=== PATIENT | male | born 1965 | race African-American/Black ===

== ENCOUNTER 2018-10-05 12:45 | Observation (INO) ==
[2018-10-05] MEDS ORDERED: Ketorolac Inj 30 MG/ML (IVP) Vial IV.PUSH ONE (14:27)
[2018-10-05] MEDS ORDERED: Sod Chloride 0.9% Inj 1,000 ML IV.CONT SCH (14:30)
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
[2018-10-05 15:20] LABS: Baso % (Auto) 0.2 % (0.0-2.0); Hematocrit 46.6 % (39.0-51.0); Hemoglobin 15.9 gm/dL (13.0-17.0); Lymph # (Auto) 0.8 th/mm3 (1.0-4.8); Lymph % (Auto) 7.2 % (9.0-44.0); Mean Corpuscular HGB Conc 34.1 % (32.0-36.0); Mean Corpuscular Hemoglobin 30.9 pg (27.0-34.0); Mean Corpuscular Volume 90.6 fL (80.0-100.0); Mean Platelet Volume 8.5 fL (7.0-11.0); Mono # (Auto) 0.3 th/mm3 (0.0-0.9); Mono % (Auto) 2.8 % (0.0-8.0); Neut # (Auto) 10.1 th/mm3 (1.8-7.7); Neut % (Auto) 89.8 % (16.0-70.0); Platelet Count 244 th/mm3 (150-450); Red Blood Count 5.14 mil/mm3 (4.50-5.90); Red Cell Distribution Width 13.7 % (11.6-17.2); White Blood Count 11.3 th/mm3 (4.0-11.0)
[2018-10-05 15:48] LABS: Alanine Aminotransferase 32 U/L (12-78); Albumin 4.4 g/dL (3.4-5.0); Anion Gap 10 meq/L (5-15); Aspartate Aminotransferase 23 U/L (15-37); Blood Urea Nitrogen 8 mg/dL (7-18); Calcium 9.5 mg/dL (8.5-10.1); Carbon Dioxide 27.4 meq/L (21.0-32.0); Chloride 105 meq/L (98-107); Glucose,Random 151 mg/dL (74-106); Magnesium 2.3 mg/dL (1.5-2.5); Potassium 3.5 meq/L (3.5-5.1); Sodium 142 meq/L (136-145)
[2018-10-05 15:51] LABS: Alkaline Phosphatase 74 U/L (45-117); Lipase 2814 U/L (73-393); Total Protein 8.3 g/dL (6.4-8.2)
[2018-10-05] MEDS ORDERED: Morphine Inj 4 MG/ML Vial IV.PUSH ONE (15:56)
--- NOTE | 2018-10-05 16:19 | CT ---
EXAM DATE: 10/05/2018 4:11 PM EST AGE/SEX: 53 years / Male INDICATIONS: Left flank pain, radiates to Left lower quadrant. CLINICAL DATA: This is the patient's initial encounter. Patient reports that signs and symptoms have been present for 1 day and indicates a pain score of 9/10. MEDICAL/SURGICAL HISTORY: None. None. RADIATION DOSE: 7.43 CTDI (mGy) COMPARISON: No prior exams available for comparison. TECHNIQUE: Multiple contiguous axial images were obtained through the abdomen. Images were obtained using multiple row detector helical technique. Using automated exposure control and adjustment of the mA and/or kV according to patient size, radiation dose was kept as low as reasonably achievable to o btain optimal diagnostic quality images. DICOM format image data is available electronically for rev iew and comparison. FINDINGS: Lower Lungs: The visualized lower lungs are clear. Liver: The liver is enlarged and demonstrates diffuse decreased attenuation suggestive of fatty infil tration but no focal mass. There is no dilation of the biliary tree. Tiny calcified gallstone is note d within the gallbladder lumen Spleen: Homogeneous density without enlargement. Pancreas: Peripancreatic inflammatory changes are noted suggestive of acute pancreatitis. Correlatio n with amylase and lipase is recommended. No pseudocyst or abscess formation is noted. Kidneys: Normal in size and shape. No evidence of mass or hydronephrosis. Adrenal Glands: Unremarkable. Aorta: The aorta and proximal iliac vessels are grossly unremarkable without aneurysmal dilation. Bowel/Mesentery: Uncomplicated colonic diverticulosis is noted. No acute diverticulitis is noted. The appendix is normal. Abdominal Wall: Small ventral abdominal wall hernias are noted and containing only fat. Retroperitoneum: No evidence of adenopathy in the retrocrural, para-aortic, or deep pelvic regions. Bladder: Contours are smooth. Reproductive Organs: No abnormal masses or calcifications seen. Inguinal: The inguinal region is unremarkable without evidence of adenopathy. Bony Structures: Unremarkable. CONCLUSION: 1. Peripancreatic inflammatory changes are noted suggestive of acute pancreatitis. Correlation with amylase and lipase is recommended. No pseudocyst or abscess formation is noted. 2. Enlarged fatty liver. 3. Cholelithiasis. 4. Uncomplicated colonic diverticulosis. 5. Small ventral abdominal wall hernias containing only fat. Electronically signed by: Dean Matthew MD 10/05/2018 4:17 PM EST
[2018-10-05 17:01] LABS: Bacteria,Urine Moderate /hpf; Bilirubin,Urine Negative (Negative); Clarity,Urine Hazy (Clear); Color,Urine Amber (Yellw/Straw); Glucose,Urine (UA) Negative (Negative); Leukocyte Esterase,Urine Negative (Negative); Mucus,Urine Few /lpf (Occasional); Nitrite,Urine Negative (Negative); Specific Gravity,Urine 1.029 (1.002-1.035); Squamous Epithelial Cell,Urine 6 /hpf (0-5)
[2018-10-05] MEDS ORDERED: Ketorolac Inj 30 MG/ML (IVP) Vial IV.PUSH PRN ×2 (17:01)
[2018-10-05] MEDS ORDERED: Acetaminophen 325 MG Tablet PO PRN ×2 (17:01→17:02)
[2018-10-05] MEDS ORDERED: Naloxone Inj 0.4 MG/ML Vial IV.PUSH PRN (17:01)
[2018-10-05] MEDS ORDERED: Morphine Inj 4 MG/ML Vial IV.PUSH PRN (17:01)
[2018-10-05] MEDS ORDERED: Bisacodyl 10 MG Supp RECTAL PRN (17:02)
[2018-10-05] MEDS ORDERED: LORazepam 1 MG Tablet PO PRN (17:15)
[2018-10-05] MEDS ORDERED: Haloperidol Inj 5 MG/ML Ampul IV.PUSH PRN (17:15)
[2018-10-05] MEDS ORDERED: Sodium Chloride 0.9% 2 ML Flush PRN IV.FLUSH (17:44)
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
[2018-10-05] MEDS ORDERED: Potassium Chlor 10 mEq Premix 10 MEQ/100 ML PIGGYBACK IV.SIG ONE (19:00)
[2018-10-05] MEDS: Sodium Chloride 0.9% 2 ML Flush BID IV.FLUSH SCH (20:08)
[2018-10-05] MEDS: Senna/Docusate Sodium 8.6/50 MG Tablet PO SCH (20:08)
[2018-10-05] MEDS: Thiamine Inj 100 MG in Sodium Chlor 0.9% Inj 100 ML IV.SIG SCH (20:15)
[2018-10-06 05:14] LABS: Baso % (Auto) 0.1 % (0.0-2.0); Hematocrit 41.4 % (39.0-51.0); Hemoglobin 14.4 gm/dL (13.0-17.0); Lymph # (Auto) 0.9 th/mm3 (1.0-4.8); Lymph % (Auto) 6.7 % (9.0-44.0); Mean Corpuscular HGB Conc 34.9 % (32.0-36.0); Mean Corpuscular Hemoglobin 31.1 pg (27.0-34.0); Mean Corpuscular Volume 89.1 fL (80.0-100.0); Mean Platelet Volume 8.5 fL (7.0-11.0); Mono # (Auto) 0.8 th/mm3 (0.0-0.9); Mono % (Auto) 6.1 % (0.0-8.0); Neut # (Auto) 11.9 th/mm3 (1.8-7.7); Neut % (Auto) 87.1 % (16.0-70.0); Platelet Count 211 th/mm3 (150-450); Red Blood Count 4.64 mil/mm3 (4.50-5.90); Red Cell Distribution Width 13.3 % (11.6-17.2); White Blood Count 13.6 th/mm3 (4.0-11.0)
[2018-10-06 06:05] LABS: Alanine Aminotransferase 25 U/L (12-78); Alkaline Phosphatase 75 U/L (45-117); Anion Gap 7 meq/L (5-15); Aspartate Aminotransferase 14 U/L (15-37); Blood Urea Nitrogen 9 mg/dL (7-18); Calcium 8.4 mg/dL (8.5-10.1); Carbon Dioxide 28.7 meq/L (21.0-32.0); Chloride 108 meq/L (98-107); Glomerular Filtration Rate Greater Than 89 mL/min (>89); Glucose,Random 113 mg/dL (74-106); Lipase 2855 U/L (73-393); Potassium 3.5 meq/L (3.5-5.1); Sodium 144 meq/L (136-145); Total Protein 7.2 g/dL (6.4-8.2); Triglycerides 76 mg/dL (42-150)
--- NOTE | 2018-10-06 08:56 | P.PN ---
Subjective Interval history: Follow up for pancreatitis, alcohol use. Patient reports feeling slightly better today. He states his abdominal pain has improved, however still uncomfortable. Reports continued intermittent nausea with last episode of vomiting last night. No bowel movement yet. Denies fevers or chills. Denies any other medical complaints. Physical Exam Vital signs: Vital Signs 10/05/18 12:48 10/05/18 14:40 10/05/18 14:41 Temperature 98.3 F 98.1 F Pulse Rate 63 62 Respiratory Rate 15 18 Blood Pressure 219/101 H 210/102 H Pulse Oximetry 98 97 98 10/05/18 17:09 10/05/18 18:27 10/05/18 18:52 Temperature 98.4 F Pulse Rate 63 58 L Respiratory Rate 18 18 18 Blood Pressure 179/86 H 174/94 H Pulse Oximetry 99 10/05/18 20:00 10/05/18 20:21 10/06/18 00:00 Temperature 98.2 F 98.3 F Pulse Rate 94 H 84 Respiratory Rate 16 18 16 Blood Pressure 148/94 H 153/84 H Pulse Oximetry 95 95 10/06/18 01:52 10/06/18 03:36 10/06/18 05:47 Temperature Pulse Rate Respiratory Rate 17 18 18 Blood Pressure Pulse Oximetry 10/06/18 06:35 Temperature 98.0 F Pulse Rate 74 Respiratory Rate 17 Blood Pressure 156/89 H Pulse Oximetry 94 L Intake & Output 10/05/18 10/06/18 10/06/18 18:59 06:59 18:59 Intake Total 100 / 100 2099 / 2099 Balance 100 / 100 2099 / 2099 Weight 87.1 kg 87.1 kg Intake: IV 100 / 100 2099 / 2099 NS + KCl 20 mEq Inj 1,000 ML @ 1000 / 1000 100 mls/hr IV.CONT .Q10H DAMARIS Rx #:[id number] NS Inj 1,000 ML @ 125 mls/hr IV 1000 / 1000 .CONT .Q8H DAMARIS Rx#:[id number] KCl 10 mEq Premix Inj 10 meq In 100 / 100 100 ml @ 100 mls/hr IV.SIG ONCE ONE Rx#:[id number] Rocephin Inj 1,000 MG In NS Inj 100 / 100 100 ML @ 200 mls/hr IV.SIG ONCE ONE Rx#:[id number] Other: Date of Last Bowel Movement 10/04/18 10/04/18 Weight On Admission 87.1 kg Narrative: GENERAL: Well-nourished, well-developed pleasant middle-aged male patient in [facility]. SKIN: Warm and dry. No rash. HEENT: Normocephalic. Atraumatic. Pupils equal and round. Mucous membranes pink and moist. CARDIOVASCULAR: Regular rate and rhythm. No murmur appreciated. RESPIRATORY: No accessory muscle use. Clear to auscultation. Breath sounds equal bilaterally. GASTROINTESTINAL: Abdomen soft, nondistended, mild tenderness to deep palpation at epigastric region. Normoactive bowel sounds x4. MUSCULOSKELETAL: No obvious deformities. Extremities without clubbing, cyanosis , or edema. NEUROLOGICAL: Awake and alert. No obvious cranial nerve deficits. Motor grossly within normal limits. Moving all extremities spontaneously. Normal speech. PSYCHIATRIC: Appropriate mood and affect; insight and judgment normal. Results - Labs CBC & Chem 7: 10/06/18 04:18 10/06/18 04:18 Laboratory Results - last 24 hr 10/05/18 10/05/18 10/05/18 15:00 15:00 16:40 WBC 11.3 H RBC 5.14 Hgb 15.9 Hct 46.6 MCV 90.6 MCH 30.9 MCHC 34.1 RDW 13.7 Plt Count 244 MPV 8.5 Neut % (Auto) 89.8 H Lymph % (Auto) 7.2 L [place] % (Auto) 2.8 Eos % (Auto) 0.0 Baso % (Auto) 0.2 Neut # (Auto) 10.1 H Lymph # (Auto) 0.8 L [place] # (Auto) 0.3 Eos # (Auto) 0.0 Baso # (Auto) 0.0 WBC Differential . Differential Comment Auto diff final Sodium 142 Potassium 3.5 Chloride 105 Carbon Dioxide 27.4 Anion Gap 10 BUN 8 Creatinine 0.91 Estimated GFR Random Glucose 151 H Calcium 9.5 Magnesium 2.3 Total Bilirubin 0.6 AST 23 ALT 32 Alkaline Phosphatase 74 Total Protein 8.3 H Albumin 4.4 Triglycerides Lipase 2814 H Urine Color Mayra Urine Clarity Hazy H Urine pH 5.0 Ur Specific [place] 1.029 Urine Protein 100 H Urine Glucose (UA) Negative Urine Ketones 20 Urine Occult Blood Negative Urine Nitrate Negative Urine Bilirubin Negative Urine Urobilinogen 2.0 H Ur Leukocyte Esterase Negative Urine RBC 3 Urine WBC 4 Ur Squamous Epith Cells 6 Urine Bacteria Moderate H Urine Mucus Few H Micro UA Comment Culture indicated Ur Microscopic Review Not Reportable Urine Culture Comments Culture indicated 10/06/18 10/06/18 04:18 04:18 WBC 13.6 H RBC 4.64 Hgb 14.4 Hct 41.4 MCV 89.1 MCH 31.1 MCHC 34.9 RDW 13.3 Plt Count 211 MPV 8.5 Neut % (Auto) 87.1 H Lymph % (Auto) 6.7 L [place] % (Auto) 6.1 Eos % (Auto) 0.0 Baso % (Auto) 0.1 Neut # (Auto) 11.9 H Lymph # (Auto) 0.9 L [place] # (Auto) 0.8 Eos # (Auto) 0.0 Baso # (Auto) 0.0 WBC Differential . Differential Comment Auto diff final Sodium 144 Potassium 3.5 Chloride 108 H Carbon Dioxide 28.7 Anion Gap 7 BUN 9 Creatinine 0.87 Estimated GFR Greater than 89 Random Glucose 113 H Calcium 8.4 L D Magnesium Total Bilirubin 0.5 AST 14 L ALT 25 Alkaline Phosphatase 75 Total Protein 7.2 D Albumin 4.0 Triglycerides 76 Lipase 2855 H Urine Color Urine Clarity Urine pH Ur Specific [place] Urine Protein Urine Glucose (UA) Urine Ketones Urine Occult Blood Urine Nitrate Urine Bilirubin Urine Urobilinogen Ur Leukocyte Esterase Urine RBC Urine WBC Ur Squamous Epith Cells Urine Bacteria Urine Mucus Micro UA Comment Ur Microscopic Review Urine Culture Comments - Imaging Impressions Abdomen/Pelvis CT 10/05/18 15:55 CONCLUSION: 1. Peripancreatic inflammatory changes are noted suggestive of acute pancreatitis. Correlation with amylase and lipase is recommended. No pseudocyst or abscess formation is noted. 2. Enlarged fatty liver. 3. Cholelithiasis. 4. Uncomplicated colonic diverticulosis. 5. Small ventral abdominal wall hernias containing only fat. Assessment and Plan - Plan 53-year-old male with history of marijuana use and alcohol abuse, presents with abdominal pain, nausea, vomiting, and anorexia. Acute pancreatitis: Suspect secondary to alcohol use, however there is presence of gallstones. -CT abdomen/pelvis 10/05 reviewed, shows Peripancreatic inflammatory changes are noted suggestive of acute pancreatitis. Correlation with amylase and lipase is recommended. No pseudocyst or abscess formation is noted. Enlarged fatty liver. Cholelithiasis. Uncomplicated colonic diverticulosis. Small ventral abdominal wall hernias containing only fat. -Lipase trended, 2814 --> 2855 today, LFTs wnl -Keep n.p.o. except ice chips -Continue supportive treatment with IV fluid hydration, pain control with Lortab prn, IV morphine prn, and antiemetics as needed -Consult gastroenterology Accelerated HTN: no hx of HTN, although the patient does not see PCP. BP 219/ 101 upon arrival. -BP has improved to 149/83 with better pain control -Likely has underlying hypertension, will continue to monitor, consider adding norvasc (avoid VONNIE/diuretic with pancreatitis) -clonidine prn for now Marijuana Use: chronic -school guidance counselor on cessation Alcohol Abuse: chronic -school guidance counselor on cessation -thiamine/folate/MV -CIWA protocol DVT Prophylaxis: teds/SCDs; patient is ambulatory
[2018-10-06] MEDS: Senna/Docusate Sodium 8.6/50 MG Tablet PO SCH ×2 (09:57→20:48)
[2018-10-06] MEDS: Sodium Chloride 0.9% 2 ML Flush BID IV.FLUSH SCH ×2 (09:57→20:43)
[2018-10-06] MEDS: Thiamine Inj 100 MG in Sodium Chlor 0.9% Inj 100 ML IV.SIG SCH (10:05)
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
[2018-10-06] MEDS: Multivitamin Inj 10 ML, Folic Acid Inj 1 MG in Sodium Chlor 0.9% Inj 500 ML IV.SIG SCH (13:33)
[2018-10-06] MEDS: Pantoprazole Sodium 20 MG DR Tablet PO SCH (18:35)
[2018-10-07 05:53] LABS: Baso % (Auto) 0.1 % (0.0-2.0); Eos % (Auto) 0.1 % (0.0-4.0); Hematocrit 39.5 % (39.0-51.0); Hemoglobin 13.4 gm/dL (13.0-17.0); Lymph # (Auto) 1.1 th/mm3 (1.0-4.8); Lymph % (Auto) 7.1 % (9.0-44.0); Mean Corpuscular HGB Conc 33.8 % (32.0-36.0); Mean Corpuscular Hemoglobin 30.8 pg (27.0-34.0); Mean Corpuscular Volume 91.1 fL (80.0-100.0); Mean Platelet Volume 8.6 fL (7.0-11.0); Mono % (Auto) 6.3 % (0.0-8.0); Neut # (Auto) 13.5 th/mm3 (1.8-7.7); Neut % (Auto) 86.4 % (16.0-70.0); Platelet Count 196 th/mm3 (150-450); Red Blood Count 4.34 mil/mm3 (4.50-5.90); Red Cell Distribution Width 13.5 % (11.6-17.2); White Blood Count 15.6 th/mm3 (4.0-11.0)
[2018-10-07 06:32] LABS: Alanine Aminotransferase 20 U/L (12-78); Albumin 3.3 g/dL (3.4-5.0); Alkaline Phosphatase 55 U/L (45-117); Anion Gap 9 meq/L (5-15); Aspartate Aminotransferase 13 U/L (15-37); Blood Urea Nitrogen 8 mg/dL (7-18); Calcium 8.4 mg/dL (8.5-10.1); Carbon Dioxide 26.3 meq/L (21.0-32.0); Chloride 108 meq/L (98-107); Glomerular Filtration Rate Greater Than 89 mL/min (>89); Glucose,Random 90 mg/dL (74-106); Lipase 964 U/L (73-393); Potassium 3.5 meq/L (3.5-5.1); Sodium 143 meq/L (136-145); Total Protein 6.6 g/dL (6.4-8.2)
[2018-10-07] MEDS: Senna/Docusate Sodium 8.6/50 MG Tablet PO SCH ×2 (09:21→22:48)
[2018-10-07] MEDS: Pantoprazole Sodium 20 MG DR Tablet PO SCH (09:21)
[2018-10-07] MEDS: Sodium Chloride 0.9% 2 ML Flush BID IV.FLUSH SCH ×2 (09:22→22:48)
--- NOTE | 2018-10-07 09:24 | P.PN ---
Subjective Interval history: Follow-up for pancreatitis, alcohol abuse. Patient seen with family at bedside. The patient reports overall improvement. He denies any further nausea or vomiting since early yesterday morning. He reports some occasional epigastric discomfort, however much improved. He is tolerating water, advance diet to clear liquids. Denies fevers or chills. Denies any other medical complaints at this time. Physical Exam Vital signs: Vital Signs 10/06/18 12:00 10/06/18 16:00 10/06/18 18:04 Temperature 97.5 F L 98.7 F Pulse Rate 71 63 Respiratory Rate 18 18 Blood Pressure 149/82 H 153/76 H Pulse Oximetry 96 96 96 10/06/18 20:00 10/07/18 00:00 10/07/18 04:00 Temperature 98.3 F 99.3 F 98.5 F Pulse Rate 73 71 73 Respiratory Rate 16 16 16 Blood Pressure 138/79 140/76 137/79 Pulse Oximetry 93 L 94 L 93 L Intake & Output 10/06/18 10/07/18 10/07/18 18:59 06:59 18:59 Intake Total 1111 / 1111 1510.2 / 1510.2 Output Total 350 / 350 Balance 761 / 761 1510.2 / 1510.2 Weight 87.1 kg Intake: IV 1101 / 1101 1510.2 / 1510.2 NS + KCl 20 mEq Inj 1,000 ML @ 1000 / 1000 1000 / 1000 100 mls/hr IV.CONT .Q10H [facility] Rx #:[id number] MVI-12 Inj 10 ML Folvite Inj 1 510.2 / 510.2 MG In NS Inj 500 ML @ 125 mls/ hr IV.SIG DAILY [facility] Rx#: [id number] Thiamine Inj 100 MG In NS Inj 101 / 101 100 ML @ 100 mls/hr IV.SIG DAILY [facility] Rx#:[id number] Oral Output: Urine 350 / 350 Other: # Voids 2 2 Date of Last Bowel Movement 10/04/18 10/04/18 Narrative: GENERAL: Well-nourished, well-developed pleasant middle-aged male patient in [facility]. SKIN: Warm and dry. No rash. HEENT: Normocephalic. Atraumatic. Pupils equal and round. Mucous membranes pink and moist. CARDIOVASCULAR: Regular rate and rhythm. No murmur appreciated. RESPIRATORY: No accessory muscle use. Clear to auscultation. Breath sounds equal bilaterally. GASTROINTESTINAL: Abdomen soft, nondistended, nontender today. Normoactive bowel sounds x4. MUSCULOSKELETAL: No obvious deformities. Extremities without clubbing, cyanosis , or edema. NEUROLOGICAL: Awake and alert. No obvious cranial nerve deficits. Moving all extremities spontaneously. Normal speech. PSYCHIATRIC: Appropriate mood and affect; insight and judgment normal. Results - Labs CBC & Chem 7: 10/07/18 04:55 10/07/18 04:55 Laboratory Results - last 24 hr 10/06/18 10/06/18 10/06/18 10:03 13:41 16:27 WBC RBC Hgb Hct MCV MCH MCHC RDW Plt Count MPV Neut % (Auto) Lymph % (Auto) [place] % (Auto) Eos % (Auto) Baso % (Auto) Neut # (Auto) Lymph # (Auto) [place] # (Auto) Eos # (Auto) Baso # (Auto) WBC Differential Differential Comment Sodium Potassium Chloride Carbon Dioxide Anion Gap BUN Creatinine Estimated GFR POC Glucose 107 98 105 Random Glucose Calcium Total Bilirubin AST ALT Alkaline Phosphatase Total Protein Albumin Lipase 10/06/18 10/07/18 10/07/18 21:57 04:55 04:55 WBC 15.6 H RBC 4.34 L Hgb 13.4 Hct 39.5 MCV 91.1 MCH 30.8 MCHC 33.8 RDW 13.5 Plt Count 196 MPV 8.6 Neut % (Auto) 86.4 H Lymph % (Auto) 7.1 L [place] % (Auto) 6.3 Eos % (Auto) 0.1 Baso % (Auto) 0.1 Neut # (Auto) 13.5 H Lymph # (Auto) 1.1 [place] # (Auto) 1.0 H Eos # (Auto) 0.0 Baso # (Auto) 0.0 WBC Differential . Differential Comment Auto diff final Sodium 143 Potassium 3.5 Chloride 108 H Carbon Dioxide 26.3 Anion Gap 9 BUN 8 Creatinine 0.73 Estimated GFR Greater than 89 POC Glucose 97 Random Glucose 90 Calcium 8.4 L Total Bilirubin 0.7 AST 13 L ALT 20 Alkaline Phosphatase 55 Total Protein 6.6 D Albumin 3.3 L D Lipase 964 H 10/07/18 07:55 WBC RBC Hgb Hct MCV MCH MCHC RDW Plt Count MPV Neut % (Auto) Lymph % (Auto) [place] % (Auto) Eos % (Auto) Baso % (Auto) Neut # (Auto) Lymph # (Auto) [place] # (Auto) Eos # (Auto) Baso # (Auto) WBC Differential Differential Comment Sodium Potassium Chloride Carbon Dioxide Anion Gap BUN Creatinine Estimated GFR POC Glucose 87 Random Glucose Calcium Total Bilirubin AST ALT Alkaline Phosphatase Total Protein Albumin Lipase Microbiology 10/05/18 16:40 Clean Catch Urine Urine Culture - Preliminary No growth in 24 hours - Imaging Abdomen/Pelvis CT 10/05/18 15:55 CONCLUSION: 1. Peripancreatic inflammatory changes are noted suggestive of acute pancreatitis. Correlation with amylase and lipase is recommended. No pseudocyst or abscess formation is noted. 2. Enlarged fatty liver. 3. Cholelithiasis. 4. Uncomplicated colonic diverticulosis. 5. Small ventral abdominal wall hernias containing only fat. Assessment and Plan - Plan 53-year-old male with history of marijuana use and alcohol abuse, presents with abdominal pain, nausea, vomiting, and anorexia. Acute pancreatitis: Suspect secondary to alcohol use, however there is presence of gallstones. -CT abdomen/pelvis 10/05 reviewed, shows Peripancreatic inflammatory changes are noted suggestive of acute pancreatitis. Correlation with amylase and lipase is recommended. No pseudocyst or abscess formation is noted. Enlarged fatty liver. Cholelithiasis. Uncomplicated colonic diverticulosis. Small ventral abdominal wall hernias containing only fat. -Lipase trended, 2814 --> 2855 --> 964 today, LFTs wnl -Initially kept n.p.o., advance to clear liquids today -Continue supportive treatment with IV fluid hydration, pain control with Lortab prn, IV morphine prn, and antiemetics as needed -Consult gastroenterology, appreciate recommendations Accelerated HTN: no hx of HTN, although the patient does not see PCP. BP 219/ 101 upon arrival. -BP has improved to 149/83 with better pain control -Likely has underlying hypertension, will continue to monitor, consider adding norvasc (avoid VONNIE/diuretic with pancreatitis) -clonidine prn for now Marijuana Use: chronic -alcohol and drug counselor on cessation Alcohol Abuse: chronic -alcohol and drug counselor on cessation -thiamine/folate/MV -CIWA protocol Leukocytosis: Unclear etiology, afebrile, possibly reactive -Monitor for now DVT Prophylaxis: teds/SCDs; patient is ambulatory Discharge Planning: Discharge pending further clinical improvement, tolerating oral intake, and GI clearance. Possible discharge later today 10/07 or tomorrow 10/08.
[2018-10-07] MEDS: Thiamine Inj 100 MG in Sodium Chlor 0.9% Inj 100 ML IV.SIG SCH (09:43)
[2018-10-07] MEDS: Multivitamin Inj 10 ML, Folic Acid Inj 1 MG in Sodium Chlor 0.9% Inj 500 ML IV.SIG SCH (10:44)
--- NOTE | 2018-10-07 16:51 | P.PNGI ---
Subjective Interval history: Patient laying supine in bed . Family at bedside Patient reports mild abdominal pain but states overall improved Denies any nausea or vomiting States tolerating clear liquids well <Sparkle Aquino - Last Filed: 10/07/18 16:46> Physical Exam Vital signs: Vital Signs 10/06/18 18:04 10/06/18 20:00 10/07/18 00:00 Temperature 98.3 F 99.3 F Pulse Rate 73 71 Respiratory Rate 16 16 Blood Pressure 138/79 140/76 Pulse Oximetry 96 93 L 94 L 10/07/18 04:00 10/07/18 08:00 10/07/18 09:55 Temperature 98.5 F 97.1 F L Pulse Rate 73 68 Respiratory Rate 16 18 17 Blood Pressure 137/79 165/83 H Pulse Oximetry 93 L 97 10/07/18 12:00 10/07/18 16:00 Temperature 99.3 F 99.4 F Pulse Rate 73 78 Respiratory Rate 20 20 Blood Pressure 148/84 H 148/87 H Pulse Oximetry 95 95 Intake & Output 10/06/18 10/07/18 10/07/18 18:59 06:59 18:59 Intake Total 1212 / 1212 1510.2 / 1510.2 611.2 / 611.2 Output Total 350 / 350 Balance 862 / 862 1510.2 / 1510.2 611.2 / 611.2 Weight 87.1 kg Intake: IV 1202 / 1202 1510.2 / 1510.2 611.2 / 611.2 NS + KCl 20 mEq Inj 1,000 ML @ 1000 / 1000 1000 / 1000 100 mls/hr IV.CONT .Q10H [facility] Rx #:[id number] MVI-12 Inj 10 ML Folvite Inj 1 510.2 / 510.2 510.2 / 510.2 MG In NS Inj 500 ML @ 125 mls/ hr IV.SIG DAILY [facility] Rx#: [id number] Thiamine Inj 100 MG In NS Inj 202 / 202 101 / 101 100 ML @ 100 mls/hr IV.SIG DAILY [facility] Rx#:[id number] Oral 10 / 10 Output: Urine 350 / 350 Other: # Voids 2 2 Date of Last Bowel Movement 10/04/18 10/04/18 - Constitutional no acute distress - Routine HEENT Exam Head: Present: normocephalic - Routine Respiratory Exam Absent: accessory muscle use - Routine Abdominal Exam Present: soft, normoactive bowel sounds. Absent: tenderness, distended, guarding, firm - Routine Skin Exam Present: dry, warm - Routine Neurological Exam Present: alert, oriented X3 <Aquino,Sparkle - Last Filed: 10/07/18 16:46> Vital signs: Vital Signs 10/07/18 00:00 10/07/18 04:00 10/07/18 08:00 Temperature 99.3 F 98.5 F 97.1 F L Pulse Rate 71 73 68 Respiratory Rate 16 16 18 Blood Pressure 140/76 137/79 165/83 H Pulse Oximetry 94 L 93 L 97 10/07/18 09:55 10/07/18 12:00 10/07/18 16:00 Temperature 99.3 F 99.4 F Pulse Rate 73 78 Respiratory Rate 17 20 20 Blood Pressure 148/84 H 148/87 H Pulse Oximetry 95 95 Intake & Output 10/07/18 10/07/18 10/08/18 06:59 18:59 06:59 Intake Total 1510.2 / 1510.2 1331.2 / 1331.2 Balance 1510.2 / 1510.2 1331.2 / 1331.2 Weight 87.1 kg Intake: IV 1510.2 / 1510.2 611.2 / 611.2 NS + KCl 20 mEq Inj 1,000 ML @ 1000 / 1000 100 mls/hr IV.CONT .Q10H [facility] Rx #:[id number] MVI-12 Inj 10 ML Folvite Inj 1 510.2 / 510.2 510.2 / 510.2 MG In NS Inj 500 ML @ 125 mls/ hr IV.SIG DAILY [facility] Rx#: [id number] Thiamine Inj 100 MG In NS Inj 101 / 101 100 ML @ 100 mls/hr IV.SIG DAILY [facility] Rx#:[id number] Oral 720 / 720 Other: # Voids 2 2 Date of Last Bowel Movement 10/04/18 <EduardoRosaura cotto - Last Filed: 10/07/18 20:01> Results - Labs CBC & Chem 7: 10/07/18 04:55 10/07/18 04:55 Laboratory Results - last 24 hr 10/06/18 10/07/18 10/07/18 21:57 04:55 04:55 WBC 15.6 H RBC 4.34 L Hgb 13.4 Hct 39.5 MCV 91.1 MCH 30.8 MCHC 33.8 RDW 13.5 Plt Count 196 MPV 8.6 Neut % (Auto) 86.4 H Lymph % (Auto) 7.1 L [place] % (Auto) 6.3 Eos % (Auto) 0.1 Baso % (Auto) 0.1 Neut # (Auto) 13.5 H Lymph # (Auto) 1.1 [place] # (Auto) 1.0 H Eos # (Auto) 0.0 Baso # (Auto) 0.0 WBC Differential . Differential Comment Auto diff final Sodium 143 Potassium 3.5 Chloride 108 H Carbon Dioxide 26.3 Anion Gap 9 BUN 8 Creatinine 0.73 Estimated GFR Greater than 89 POC Glucose 97 Random Glucose 90 Calcium 8.4 L Total Bilirubin 0.7 AST 13 L ALT 20 Alkaline Phosphatase 55 Total Protein 6.6 D Albumin 3.3 L D Lipase 964 H 10/07/18 10/07/18 07:55 12:59 WBC RBC Hgb Hct MCV MCH MCHC RDW Plt Count MPV Neut % (Auto) Lymph % (Auto) [place] % (Auto) Eos % (Auto) Baso % (Auto) Neut # (Auto) Lymph # (Auto) [place] # (Auto) Eos # (Auto) Baso # (Auto) WBC Differential Differential Comment Sodium Potassium Chloride Carbon Dioxide Anion Gap BUN Creatinine Estimated GFR POC Glucose 87 103 Random Glucose Calcium Total Bilirubin AST ALT Alkaline Phosphatase Total Protein Albumin Lipase Microbiology 10/05/18 16:40 Clean Catch Urine Urine Culture - Final Gardnerella vaginalis <Sparkle Aquino - Last Filed: 10/07/18 16:46> - Labs CBC & Chem 7: 10/07/18 04:55 10/07/18 04:55 Laboratory Results - last 24 hr 10/06/18 10/07/18 10/07/18 21:57 04:55 04:55 WBC 15.6 H RBC 4.34 L Hgb 13.4 Hct 39.5 MCV 91.1 MCH 30.8 MCHC 33.8 RDW 13.5 Plt Count 196 MPV 8.6 Neut % (Auto) 86.4 H Lymph % (Auto) 7.1 L [place] % (Auto) 6.3 Eos % (Auto) 0.1 Baso % (Auto) 0.1 Neut # (Auto) 13.5 H Lymph # (Auto) 1.1 [place] # (Auto) 1.0 H Eos # (Auto) 0.0 Baso # (Auto) 0.0 WBC Differential . Differential Comment Auto diff final Sodium 143 Potassium 3.5 Chloride 108 H Carbon Dioxide 26.3 Anion Gap 9 BUN 8 Creatinine 0.73 Estimated GFR Greater than 89 POC Glucose 97 Random Glucose 90 Calcium 8.4 L Total Bilirubin 0.7 AST 13 L ALT 20 Alkaline Phosphatase 55 Total Protein 6.6 D Albumin 3.3 L D Lipase 964 H 10/07/18 10/07/18 10/07/18 07:55 12:59 17:54 WBC RBC Hgb Hct MCV MCH MCHC RDW Plt Count MPV Neut % (Auto) Lymph % (Auto) [place] % (Auto) Eos % (Auto) Baso % (Auto) Neut # (Auto) Lymph # (Auto) [place] # (Auto) Eos # (Auto) Baso # (Auto) WBC Differential Differential Comment Sodium Potassium Chloride Carbon Dioxide Anion Gap BUN Creatinine Estimated GFR POC Glucose 87 103 127 H Random Glucose Calcium Total Bilirubin AST ALT Alkaline Phosphatase Total Protein Albumin Lipase Microbiology 10/05/18 16:40 Clean Catch Urine Urine Culture - Final Gardnerella vaginalis <Rosaura Mcgraw - Last Filed: 10/07/18 20:01> Assessment and Plan (1) Pancreatitis Status: Acute Code(s): K85.90 - Acute pancreatitis without necrosis or infection, unspecified - Plan 10/07/2018 Pancreatitis Patient states tolerating clear liquid well, denies any nausea or vomiting. States abdominal pain overall improved No BM yet today WBC 15.6 hemoglobin 13.4 hematocrit 39.5 platelet count 196 Liver function tests within normal limits, lipase 964 trending down Plan -Clear liquid diet as tolerated -IV hydration -Analgesia and antiemetics as per attending -Patient to follow-up post discharge with GI -for endoscopic evaluation as outpatient -Alcohol cessation -Supportive care This patient has been seen by myself and Dr. Mcgraw and this note is written on his behalf - Attending Attestation Dr. Mcgraw <Sparkle Aquino - Last Filed: 10/07/18 16:46> (1) Pancreatitis Status: Acute Code(s): K85.90 - Acute pancreatitis without necrosis or infection, unspecified - Plan Patient was seen and examined, agree with above note, no alcohol, advance diet as tolerated to low-fat if lipase is better <Rosaura Mcgraw - Last Filed: 10/07/18 20:01> <Sparkle Aquino - Last Filed: 10/07/18 16:46> (1) Pancreatitis Qualifiers: Chronicity: acute Pancreatitis type: alcohol induced Acute pancreatitis complication: unspecified Qualified Code(s): K85.20 - Alcohol induced acute pancreatitis without necrosis or infection <Rosaura Mcgraw - Last Filed: 10/07/18 20:01> (1) Pancreatitis Qualifiers: Chronicity: acute Pancreatitis type: alcohol induced Acute pancreatitis complication: unspecified Qualified Code(s): K85.20 - Alcohol induced acute pancreatitis without necrosis or infection
[2018-10-08 05:06] LABS: Hematocrit 36.9 % (39.0-51.0); Hemoglobin 12.8 gm/dL (13.0-17.0); Mean Corpuscular HGB Conc 34.7 % (32.0-36.0); Mean Corpuscular Hemoglobin 31.3 pg (27.0-34.0); Mean Corpuscular Volume 90.3 fL (80.0-100.0); Mean Platelet Volume 8.8 fL (7.0-11.0); Platelet Count 177 th/mm3 (150-450); Red Blood Count 4.08 mil/mm3 (4.50-5.90); Red Cell Distribution Width 13.7 % (11.6-17.2); White Blood Count 14.8 th/mm3 (4.0-11.0)
[2018-10-08 05:31] LABS: Alanine Aminotransferase 38 U/L (12-78); Alkaline Phosphatase 85 U/L (45-117); Anion Gap 8 meq/L (5-15); Aspartate Aminotransferase 32 U/L (15-37); Blood Urea Nitrogen 7 mg/dL (7-18); Calcium 8.3 mg/dL (8.5-10.1); Carbon Dioxide 27.8 meq/L (21.0-32.0); Chloride 103 meq/L (98-107); Glomerular Filtration Rate Greater Than 89 mL/min (>89); Glucose,Random 97 mg/dL (74-106); Lipase 560 U/L (73-393); Potassium 3.3 meq/L (3.5-5.1); Sodium 139 meq/L (136-145); Total Protein 6.8 g/dL (6.4-8.2)
[2018-10-08] MEDS: Senna/Docusate Sodium 8.6/50 MG Tablet PO SCH (09:16)
[2018-10-08] MEDS: Pantoprazole Sodium 20 MG DR Tablet PO SCH (09:16)
[2018-10-08] MEDS: Thiamine Inj 100 MG in Sodium Chlor 0.9% Inj 100 ML IV.SIG SCH (09:17)
--- NOTE | 2018-10-08 09:23 | P.DS ---
Date of admission: 10/05/18 17:09 Primary care physician: No Primary Care Physician Attending physician on discharge: Berto Cote Anticipated date of discharge: 10/08/18 Brief History from admission: This is a 53-year-old male with history of marijuana and alcohol abuse. He presents to the emergency department because of acute onset of severe constant sharp lower back pain radiating to mid to lower abdominal area is associated with nausea, vomiting and anorexia. Denies fever, chills, UTI symptoms, diarrhea and constipation. Abdominal CT shows peripancreatic inflammatory changes suggestive of acute pancreatitis. He also has enlarged fatty liver and cholelithiasis. Elevated BP readings slightly improved with pain control. He denies history of hypertension but has not seen a doctor for several years. All other systems reviewed negative Patient update on day of discharge: Follow up for alcoholic pancreatitis. The patient reports his symptoms are improving. He has been tolerating clear liquids, plan to advance to regular food today prior to discharge. Reports occasional epigastric discomfort, however much improved. Denies any vomiting today. He has no other medical complaints at this time. DS: Diagnosis - Discharge Diagnosis (1) Pancreatitis Status: Acute Diagnosis: Principal DS: Medications - Discharge Medications Prescriptions: pantoprazole [Protonix] 20 mg PO DAILY #30 tab DS: Summary Hospital Course: 53-year-old male with history of marijuana use and alcohol abuse, presents with abdominal pain, nausea, vomiting, and anorexia. Acute pancreatitis: Suspect secondary to alcohol use, however there is presence of gallstones. CT abdomen/pelvis 10/05 reviewed, shows Peripancreatic inflammatory changes are noted suggestive of acute pancreatitis. Correlation with amylase and lipase is recommended. No pseudocyst or abscess formation is noted. Enlarged fatty liver. Cholelithiasis. Uncomplicated colonic diverticulosis. Small ventral abdominal wall hernias containing only fat. Lipase trended, 2814 --> 2855 --> 964 --> 560, LFTs wnl. Initially kept n.p.o., advance to clear liquids then to low fat diet. Given supportive treatment with IV fluid hydration, pain control with Lortab prn, IV morphine prn, and antiemetics as needed. Consult gastroenterology, appreciate recommendations, outpatient f/up recommended. Symptoms improved, tolerating oral intake. Trial of regular food this morning prior to discharge, if tolerates, will d/c home. Accelerated HTN: no hx of HTN, although the patient does not see PCP. BP 219/ 101 upon arrival. BP has improved to 149/83 with better pain control. Likely has underlying hypertension, started on norvasc (avoid VONNIE/diuretic with pancreatitis). Clonidine prn during hospitalization. Marijuana Use: chronic. Counseled on cessation. Alcohol Abuse: chronic. Counseled on cessation. Thiamine/folate/MV. CIWA protocol. Stable. Leukocytosis: Unclear etiology, afebrile, possibly reactive to vomiting. Trending down. Afebrile. Stable. - Time Spent with Patient Total time spent providing and/or coordinating discharge services: Less than 30 minutes - Quality: VTE Deep Vein Thrombosis/Pulmonary Embolism Present on Admission: No Exam Vital signs: Vital Signs 10/07/18 09:55 10/07/18 12:00 10/07/18 16:00 Temperature 99.3 F 99.4 F Pulse Rate 73 78 Respiratory Rate 17 20 20 Blood Pressure 148/84 H 148/87 H Pulse Oximetry 95 95 10/07/18 20:00 10/08/18 01:02 10/08/18 04:00 Temperature 97.5 F L 99.0 F 99.1 F Pulse Rate 77 72 73 Respiratory Rate 18 18 18 Blood Pressure 171/81 H 156/87 H 170/79 H Pulse Oximetry 95 95 94 L Intake & Output 10/07/18 10/08/18 10/08/18 18:59 06:59 18:59 Intake Total 1331.2 / 1331.2 1720 / 1720 Balance 1331.2 / 1331.2 1720 / 1720 Weight 94.1 kg Intake: IV 611.2 / 611.2 1000 / 1000 NS + KCl 20 mEq Inj 1,000 ML @ 1000 / 1000 100 mls/hr IV.CONT .Q10H [facility] Rx #:[id number] MVI-12 Inj 10 ML Folvite Inj 1 510.2 / 510.2 MG In NS Inj 500 ML @ 125 mls/ hr IV.SIG DAILY [facility] Rx#: [id number] Thiamine Inj 100 MG In NS Inj 101 / 101 100 ML @ 100 mls/hr IV.SIG DAILY [facility] Rx#:[id number] Oral 720 / 720 720 / 720 Other: # Voids 2 3 Date of Last Bowel Movement 10/04/18 Narrative: GENERAL: Well-nourished, well-developed pleasant middle-aged male patient in [facility]. SKIN: Warm and dry. No rash. HEENT: Normocephalic. Atraumatic. Pupils equal and round. Mucous membranes pink and moist. CARDIOVASCULAR: Regular rate and rhythm. No murmur appreciated. RESPIRATORY: No accessory muscle use. Clear to auscultation. Breath sounds equal bilaterally. GASTROINTESTINAL: Abdomen soft, nondistended, nontender today. Normoactive bowel sounds x4. MUSCULOSKELETAL: No obvious deformities. Extremities without clubbing, cyanosis , or edema. NEUROLOGICAL: Awake and alert. No obvious cranial nerve deficits. Moving all extremities spontaneously. Normal speech. PSYCHIATRIC: Appropriate mood and affect; insight and judgment normal. Results Procedures completed during hospitalization: None. Labs on day of discharge: Labs from last 24 hours 10/08/18 10/08/18 10/08/18 08:59 04:02 04:02 WBC 14.8 H RBC 4.08 L Hgb 12.8 L Hct 36.9 L MCV 90.3 MCH 31.3 MCHC 34.7 RDW 13.7 Plt Count 177 MPV 8.8 Sodium 139 Potassium 3.3 L Chloride 103 Carbon Dioxide 27.8 Anion Gap 8 BUN 7 Creatinine 0.63 Estimated GFR Greater than 89 POC Glucose 107 Random Glucose 97 Calcium 8.3 L Total Bilirubin 0.5 AST 32 ALT 38 Alkaline Phosphatase 85 Total Protein 6.8 Albumin 3.0 L Lipase 560 H 10/07/18 10/07/18 10/07/18 22:46 17:54 12:59 WBC RBC Hgb Hct MCV MCH MCHC RDW Plt Count MPV Sodium Potassium Chloride Carbon Dioxide Anion Gap BUN Creatinine Estimated GFR POC Glucose 120 H 127 H 103 Random Glucose Calcium Total Bilirubin AST ALT Alkaline Phosphatase Total Protein Albumin Lipase - Impressions ITS Impressions Abdomen/Pelvis CT 10/05/18 15:55 CONCLUSION: 1. Peripancreatic inflammatory changes are noted suggestive of acute pancreatitis. Correlation with amylase and lipase is recommended. No pseudocyst or abscess formation is noted. 2. Enlarged fatty liver. 3. Cholelithiasis. 4. Uncomplicated colonic diverticulosis. 5. Small ventral abdominal wall hernias containing only fat. Discharge Plan - Discharge Disposition Patient Disposition: 01 Discharge Home - Discharge Condition Condition: Stable - Discharge Order Discharge Orders: Discharge Order (Routine); Ordered 10/08/18 Ordered By: Kinga Henry - Discharge Details Anticipated Discharge Date: 10/08/18 Discharge Comment: Ok to discharge if tolerates breakfast. - Physicians Team Primary Care Provider: Primary Care Kelli Helm Attending Provider: Berto Cote Other Providers: Rosaura Mcgraw MD
[2018-10-08 10:19] VITALS: RESP 16
[2018-10-08] MEDS: Sodium Chloride 0.9% 2 ML Flush BID IV.FLUSH SCH (11:06)
[2018-10-08] MEDS: Multivitamin Inj 10 ML, Folic Acid Inj 1 MG in Sodium Chlor 0.9% Inj 500 ML IV.SIG SCH (11:06)
[2018-10-08] MEDS ORDERED: amLODIPine 10 MG Tablet PO SCH (11:15)
[2018-10-08 12:07] VITALS: BP 172/86; PULSE 77; TEMP 98.8; O2SAT 96
== END 2018-10-08 14:31 | disposition home or self-care (01) | DRG 440 ==
LOC: NEPC 12:45 → INTOOBSV 17:02 → NEDA 17:09 → N06 18:14
PROVIDERS: ADMIT Internal Medicine; ATTEND Internal Medicine
CPT/HCPCS: 74176; 80053; 81001; 82948; 82962; 83690; 83735; 84478; 85025; 85027; 87086; 90761; 90775; 90776; 96361; 96365; 96366; 96367; 96368; 96374; 96375; 96376; 99285; G0378; J0696; J1885; J2060; J2270; J2405; J3411; J3480; J7030; J7040